=== PATIENT | male | born 1960 | race Caucasian/White ===

== ENCOUNTER 2021-05-12 09:07 | Day surgery (SDC) | payer BC ==
[~2021-05-12 09:07] MED LIST: Acetaminophen 325 MG Tab PO SCH; Midazolam 1 MG/ML 2 ML SDV ONE; Pregabalin 25 MG Cap PO SCH; Propofol 200 MG/20 ML SDV ONE; ceFAZolin 1 GM Vial ONE; oxyCODONE ER 10 MG TAB.ER PO SCH
--- NOTE | 2021-05-12 09:30 | PCM.PREANE ---
Preanesthetic Assessment - Procedure Proposed Procedure: Left total knee arthroplasty - Anesthesia/Transfusion/Family Hx Anesthesia History: Prior Anesthesia Without Reaction Family History of Anesthesia Reaction: No Transfusion History: No Prior Transfusion(s) Intubation History: Unknown - Review of Systems General: No Symptoms Pulmonary: No Symptoms Cardiovascular: No Symptoms Gastrointestinal: No Symptoms Neurological: Numbness (Left ring and pinky finger), Tingling Other: Reports: None - Physical Assessment NPO Status Date: 05/11/21 NPO Status Time: 20:00 Vital Signs: 137/84 HR 74 RR 14 95% RA 98.5 Height: 1.75 m Weight: 95.7 kg ASA Class: 2 Mental Status: Alert & Oriented x3 Airway Class: Mallampati = 1 Dentition: Reports: Normal Dentition, Titanic(s), Caries Thyro-Mental Finger Breadths: 3 Mouth Opening Finger Breadths: 3 Lungs: Clear to Auscultation, Normal Respiratory Effort, Other (Patient vaped this morning) Cardiovascular: Regular Rate, Regular Rhythm, No Murmurs - Lab Values: Labs reviewed and okay to proceed - Imaging/EKG Impressions: EKG 04/15/21 NSR HR 63 Chest x-ray04/15/21: no acute findings - Allergies Allergies/Adverse Reactions: Allergies Allergy/AdvReac Type Severity Reaction Status Date / Time acetaminophen [From Vicodin] Allergy Cannot Verified 05/09/21 10:39 Remember hydrocodone bitartrate Allergy Cannot Verified 05/09/21 10:39 [From Vicodin] Remember niacin Allergy Rash Verified 05/09/21 10:39 - Blood Blood Available: No Product(s) Available: None - Anesthesia Plan Pre-Op Medication Ordered: Other (See Dr. Gaspar's orders) - Acknowledgements Anesthesia Type Planned: Spinal Pt an Appropriate Candidate for the Planned Anesthesia: Yes Alternatives and Risks of Anesthesia Discussed w Pt/Guardian: Yes Pt/Guardian Understands and Agrees with Anesthesia Plan: Yes PreAnesthesia Questionnaire HEENT History: Reports: Hard of Hearing, Sinusitis, Other (See Below) Other HEENT History: otomycosis, hearing loss, tinnitus Cardiovascular History: Reports: High Cholesterol, Hypertension Other Cardiovascular History: Can perform greater than 4 METS without chest pain and SOB Respiratory History: Reports: COPD Gastrointestinal History: Reports: Chronic Constipation Genitourinary History: Reports: Renal Calculus 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 Musculoskeletal History: Reports: Osteoarthritis Neurological History: Reports: Other (See Below) Other Neuro History: tremor, numbness/tingling to legt ring and pinky finger (chronic for patient), occasional headaches Psychiatric History: Reports: Anxiety, Depression, Other (See Below) Other Psychiatric History: insomnia Endocrine/Metabolic History: Reports: Vitamin D Deficiency Hematologic History: Reports: None Immunologic History: Reports: None Oncologic (Cancer) History: Reports: None Dermatologic History: Reports: Other (See Below) Other Dermatologic History: pruitis - Past Surgical History Head Surgeries/Procedures: Reports: None HEENT Surgical History: Reports: Tonsillectomy Cardiovascular Surgical History: Reports: Varicose Respiratory Surgical History: Reports: None GI Surgical History: Reports: Colonoscopy Female Surgical History: Reports: None Male Surgical History: Reports: None, Vasectomy Endocrine Surgical History: Reports: None Neurological Surgical History: Reports: Lumbar Spine (x2) Musculoskeletal Surgical History: Reports: Other (See Below) Other Musculoskeletal Surgeries/Procedures:: R shoulder torn tendon, low back and R ankle surgery, Bilateral shoulder repair, leg surgery Oncologic Surgical History: Reports: None Dermatological Surgical History: Reports: None - SUBSTANCE USE Tobacco Use Status *Q: Former Tobacco User Tobacco Use Within Last Twelve Months: Vaping Second Hand Smoke Exposure: No Days Per Week of Alcohol Use: 0 Number of Drinks Per Day: 0 Total Drinks Per Week: 0 Recreational Drug Use History: No - HOME MEDS Home Medications: Home Meds Lisinopril/Hydrochlorothiazide [Lisinopril-Hctz 20-12.5 mg Tab] 1 tab PO DAILY 07/14/14 [History] atorvaSTATin [Lipitor] 40 mg PO DAILY 07/14/14 [History] Multivit-Min/FA/Lycopen/Lutein [Centrum Silver Ultra Men's] 1 tab PO DAILY 01/24/16 [History] Ubidecarenone [Coq10] 50 mg PO DAILY 01/24/16 [History] Aspirin 81 mg PO DAILY 05/09/21 [History] Celecoxib 200 mg PO DAILY 05/09/21 [History] Cholecalciferol (Vitamin D3) [Vitamin D3] 5,000 unit PO DAILY 05/09/21 [History] Vitamin B Complex [B Complex] 1 tab PO DAILY 05/09/21 [History] Apixaban [Eliquis] 2.5 mg PO BID #84 tablet 05/11/21 [Rx] Cyclobenzaprine [Flexeril] 10 mg PO BID PRN #20 tab 05/11/21 [Rx] oxyCODONE 5 - 10 mg PO Q4H PRN #40 tab 05/11/21 [Rx] - CURRENT (IN HOUSE) MEDS Current Meds: Current Medications Acetaminophen (Acetaminophen 325 Mg Tab) 975 mg PO ONETIME RAJAT Stop: 05/12/21 16:00 Last Admin: 05/12/21 09:19 Dose: 975 mg Documented by: Morphine Sulfate 8 mg/Epinephrine HCl 0.3 mg/Cefuroxime Sodium 750 mg/Ketorolac Tromethamine 30 mg/Sodium Chloride 7.9 ml 0 mg .XX ASDIRECTED PRN PRN Reason: Pain Stop: 05/12/21 18:00 Oxycodone HCl (Oxycodone Er 10 Mg Tab.Er) 10 mg PO ONETIME RAJAT Stop: 05/12/21 16:00 Last Admin: 05/12/21 09:19 Dose: 10 mg Documented by: Pregabalin (Pregabalin 25 Mg Cap) 50 mg PO ONETIME RAJAT Stop: 05/12/21 16:00 Last Admin: 05/12/21 09:20 Dose: 50 mg Documented by: Discontinued Medications Cefazolin Sodium (Cefazolin 1 Gm Vial) Confirm Administered Dose 2 gm .ROUTE .STK-MED ONE Stop: 05/12/21 08:26 Midazolam HCl (Midazolam 1 Mg/Ml 2 Ml Sdv) Confirm Administered Dose 2 mg .ROUTE .STK-MED ONE Stop: 05/12/21 08:20 Propofol (Propofol 200 Mg/20 Ml Sdv) Confirm Administered Dose 400 mg .ROUTE .STK-MED ONE Stop: 05/12/21 08:20 Propofol (Propofol 200 Mg/20 Ml Sdv) Confirm Administered Dose 200 mg .ROUTE .STK-MED ONE Stop: 05/12/21 08:32
[2021-05-12] MEDS ORDERED: Albuterol 0.083% 2.5 MG/3 ML Neb Soln ONE (09:38)
[2021-05-12] MEDS ORDERED: Albuterol 0.083% 2.5 MG/3 ML Neb Soln NEB ONE (09:40)
[2021-05-12] MEDS ORDERED: Sodium Chloride 0.9% 10 ML Syringe FLUSH PRN (09:42)
[2021-05-12] MEDS ORDERED: Lidocaine 1%/Sod Bicarbonate in NS 8.4% 1 ML Syringe IDERM PRN (09:42)
[2021-05-12] MEDS ORDERED: Lactated Ringers 1,000 ML IV SCH (09:45)
[2021-05-12] MEDS ORDERED: EPINEPHrine 1 MG/ML SDV ONE (10:07)
[2021-05-12] MEDS ORDERED: Ropivacaine 0.5% 5 MG/ML 30 ML SDV ONE (10:07)
[2021-05-12] MEDS ORDERED: fentaNYL 100 MCG/2 ML SDV ONE (11:20)
[2021-05-12] MEDS ORDERED: ePHEDrine 50 MG/ML SDV ONE (11:25)
[2021-05-12] MEDS ORDERED: Propofol 200 MG/20 ML SDV ONE ×3 (11:39→12:38)
[2021-05-12] MEDS ORDERED: Lactated Ringers 1,000 ML ONE (11:55)
[2021-05-12] MEDS: Morphine 8 MG, EPINEPHrine 0.3 MG, Cefuroxime 750 MG, Ketorolac 30 MG, Sodium Chloride ... PRN ×10 (11:57→12:27)
[2021-05-12] MEDS: Vancomycin 1 GM SDV ONE ×2 (11:58→12:33)
[2021-05-12] MEDS ORDERED: Ondansetron 4 MG/2 ML SDV IVPUSH PRN (13:28)
[2021-05-12] MEDS ORDERED: fentaNYL 100 MCG/2 ML SDV IVPUSH PRN (13:28)
[2021-05-12] MEDS ORDERED: HYDROmorphone 0.5 MG/0.5 ML Syringe IVPUSH PRN (13:28)
--- NOTE | 2021-05-12 13:31 | PCM.POSTAN ---
POST ANESTHESIA ASSESSMENT - MENTAL STATUS Mental Status: Alert, Oriented - VITAL SIGNS Vital Signs: Last Vital Signs Temp 98.3 F 05/12/21 13:25 Pulse 73 05/12/21 13:25 Resp 16 05/12/21 13:25 BP 108/67 05/12/21 13:25 Pulse Ox 95 05/12/21 13:25 - RESPIRATORY Respiratory Status: Respiratory Rate WNL, Airway Patent, O2 Saturation Stable - CARDIOVASCULAR CV Status: Pulse Rate WNL, Blood Pressure Stable - GASTROINTESTINAL GI Status: No Symptoms - PAIN Pain Score: 0 - POST OP HYDRATION Hydration Status: Adequate & Stable
--- NOTE | 2021-05-12 13:33 | PCM.SN.2 ---
- Free Text/Narrative Note: Left selective femoral nerve block at the adductor canal for post-procedure pain control under US guidance requested by Dr. Gaspar. Time Out: 1305 Start: 1308 End: 1312 Chart reviewed. Consent signed. Questions answered. Appropriate monitors applied. Time out performed. Left mid-shaft femur identified with ultrasound, scanning medially of femur, the femoral artery in the adductor canal visualized, and the femoral nerve located laterally to the artery. The skin was prepped lateral to the ultrasound probe with chlorahexadine times two. The 21ga 4 insulated block needle was inserted under direct ultrasound guidance into the adductor canal. 20mL of 0.5% ropivacaine with 1:200,000 epinephrine was injected circumferentially around the nerve with intermittent negative aspiration noted. Patient tolerated the procedure well. Sterile technique noted along with sterile gloves, mask, and sterile probe cover. See picture on progress note and vital signs on nurses notes. Block completed in PACU. Isabelle Salguero, BILINGUAL ACCOUNT MANAGER
--- NOTE | 2021-05-12 14:01 | CR ---
Left knee: AP and crosstable lateral views of the left knee were obtained. Comparison: Prior left knee CT knee exam of 04/30/21. Knee prosthesis is seen. Components are aligned. Underlying bony structures show no acute abnormality. Soft tissue air is seen. Impression: 1. Satisfactory postop radiographic appearance of left knee prosthesis. Diagnostic code #2
[2021-05-12 15:04] VITALS: BP 124/84; PULSE 78
--- NOTE | 2021-05-12 15:15 | PCM48HPAN ---
Post Anesthesia Note - EVALUATION WITHIN 48HRS OF ANESTHETIC Vital Signs in Normal Range: Yes Patient Participated in Evaluation: Yes Respiratory Function Stable: Yes Airway Patent: Yes Cardiovascular Function Stable: Yes Hydration Status Stable: Yes Pain Control Satisfactory: Yes Nausea and Vomiting Control Satisfactory: Yes Mental Status Recovered: Yes Vital Signs: Last Vital Signs Temp 36.6 C 05/12/21 15:00 Pulse 78 05/12/21 15:00 Resp 16 05/12/21 15:00 BP 124/84 05/12/21 15:00 Pulse Ox 96 05/12/21 15:00
--- NOTE | 2021-05-20 08:03 | PCM.OPNOTE ---
- General Post-Op/Procedure Note Date of Surgery/Procedure: 05/12/21 Operative Procedure(s): left total knee arthroplasty with isabelle tom robotics Pre Op Diagnosis: left knee osteoarthrosis Post-Op Diagnosis: Same Anesthesia Technique: Local, MAC, Spinal Primary Surgeon: Sav Gaspar Anesthesia Provider: Isabelle Salguero Marketing Traffic Coordinator: Morelia Thomas Marketing Traffic Coordinator: Jeanette Gaurdado EBL in mLs: 300 Complications: None Condition: Good Free Text/Narrative:: 01/29 9mm 35x10
--- NOTE | 2021-05-26 07:56 | OR ---
DATE OF OPERATION: 05/12/2021 SURGEON: Sav Gaspar MD OPERATION PERFORMED: Left total knee arthroplasty with [employer] Bernard[employer] robotics. PREOPERATIVE DIAGNOSIS: Left knee osteoarthrosis. POSTOPERATIVE DIAGNOSIS: Left knee osteoarthrosis. ANESTHESIA: Local MAC with spinal. ANESTHESIA PROVIDER: Isabelle Salguero CRNA. ASSISTANTS: Morelia Thomas PA-C and Jeanette Guardado LPN. ESTIMATED BLOOD LOSS: 300 mL. COMPLICATIONS: None. CONDITION: Stable. IMPLANT: 1. Marcela size 5 press-fit CR femur. 2. Marcela size 5 press-fit tibial baseplate. 3. Marcela size 5, 9 mm CS polyethylene insert. 4. Marcela size 35 x 10 mm press-fit asymmetric patella. DESCRIPTION OF PROCEDURE: The patient was identified in the preoperative holding area. Proper site was marked and identified by the surgeon. The patient was taken back to the operating theater where after adequate anesthesia, the patient's left lower extremity had a nonsterile tourniquet applied and it was then sterilely prepped and draped in the usual sterile fashion. OR time-out was performed. The patient received 2 g IV Ancef. Left lower extremity than had the boot campbell applied. It was then exsanguinated. Tourniquet was insufflated to 250 mmHg. Standard anterior incision was made. Anterior medial parapatellar arthrotomy was created. Deep fibers of the MCL were raised and anterior fat pad was resected. Attention was turned to the patella, patella measured a 25, resected to a 15 for a 35 x 10 mm patella. Drill holes were then drilled and found to be adequate. Attention was turned to the femur. Two 4.0 Schanz pins were placed intra-incisionally on the femur for the Marcela Bernardino robotic array, 2 more were placed in the tibia, 3 fingerbreadths below the tibial tubercle. Check points were then placed on the femur and the tibia. Hip center rotation was obtained. Medial and lateral malleoli were marked as well as the checkpoints on the femur and the tibia. 40 points were then obtained off the femur and the tibia for the Marcela Bernardino robotic plan. The patient's knee was brought into full extension, varus valgus stresses were applied at 90 degrees of flexion. Renton Bernardino robotic plan for 19 mm gaps was then undertaken for this patient. A straight saw blade was brought in and tibial cut was completed, anterior femoral cut, anterior chamfer cut, and posterior femoral cut. Saw blade was then switched, distal femoral cut and posterior chamfer cuts were then completed. All bony fragments were removed. The medial and lateral meniscus were resected. Posterior osteophytes were removed. A trial of 5 baseplate was placed on the tibia, trial 5 femur was placed. A 9 mm trial spacer was placed. The patient had full extension and flexion. No varus-valgus instability was noted. Femoral drill holes were drilled. Tibia was stamped and drilled in proper rotation. Size 5 baseplate was then impacted into place, size 5 CR femur was impacted into place, and 9 mm CS polyethylene insert was impacted into place. The patient's knee was brought into full extension and a 35 x 10 mm press-fit patella was press-fit into place. Tourniquet was deflated. Bleeders were cauterized. 1 L pulse lavage irrigation with Ancef was irrigated through the knee along with 400 mL of Irrisept irrigation. Periarticular injection was completed. Topical tranexamic acid and vancomycin powder were applied. A #2 barbed suture was used for closure of the medial parapatellar arthrotomy, 2-0 Vicryl and Stratafix was used for subcutaneous closure, and Prineo was used for skin closure. The patient had a sterile soft dressing applied and sent to the PACU in stable condition. MMODAL /[id number]
== END 2021-05-12 16:22 | disposition home or self-care (01) ==
LOC: JD.SDS 09:07 → JD.MS 09:08 → JD.SDS 16:22
PROVIDERS: ATTEND Orthopaedic Surgery
DX: M17.12 Unilateral primary osteoarthritis, left knee (principal); I10 Essential (primary) hypertension; E78.2 Mixed hyperlipidemia; F33.42 Major depressive disorder, recurrent, in full remission; G89.18 Other acute postprocedural pain; E55.9 Vitamin D deficiency, unspecified; Z79.899 Other long term (current) drug therapy; Z79.82 Long term (current) use of aspirin; Z88.8 Allergy status to other drugs, medicaments and biological substances; Z98.890 Other specified postprocedural states; Z87.891 Personal history of nicotine dependence
CPT/HCPCS: 27447; 73560; 94640; 97110; 97116; 97161; A9270; C1713; C1776; J0171; J0690; J0697; J1885; J2250; J2270; J2370; J2704; J2795; J3010; J3370; J7120; 01402; 64450; 76942

== ENCOUNTER 2023-09-19 10:58 | Emergency (ER) | payer BC ==
[2023-09-19 13:30] VITALS: BP 142/94
[2023-09-19] MEDS ORDERED: Apixaban 5 MG Tab PO ONE (13:30)
[2023-09-19 13:50] VITALS: PULSE 80
== END 2023-09-19 13:43 | disposition home or self-care (01) ==
LOC: JD.ED 10:58
DX: I82.401 Acute embolism and thrombosis of unspecified deep veins of right lower extremity (principal); I10 Essential (primary) hypertension; E78.00 Pure hypercholesterolemia, unspecified; J44.9 Chronic obstructive pulmonary disease, unspecified; M19.90 Unspecified osteoarthritis, unspecified site; F17.210 Nicotine dependence, cigarettes, uncomplicated; Z79.01 Long term (current) use of anticoagulants; Z79.82 Long term (current) use of aspirin; Z88.5 Allergy status to narcotic agent; Z88.8 Allergy status to other drugs, medicaments and biological substances
CPT/HCPCS: 93971; 99283; A9270

== ENCOUNTER 2024-02-23 12:14 | Emergency (ER) | payer BC ==
[2024-02-23] MEDS: Iopamidol 755 Mg/ML 100 ML Bottle IVPUSH ONE (12:34)
[2024-02-23] MEDS: Sodium Chloride 0.9% 10 ML Syringe FLUSH PRN (12:34)
[2024-02-23] MEDS: Sodium Chloride 0.9% 100 ML IV SCH (12:34)
[2024-02-23 13:00] LABS: BASOPHILS ABSOLUTE AUTO 0.1 K/mm3 (0.0-0.2); BASOPHILS PERCENT AUTO 1.1 % (0.0-1.0); EOSINOPHILS ABSOLUTE AUTO 0.1 K/mm3 (0.0-0.4); HEMATOCRIT 43.6 % (42.0-52.0); HEMOGLOBIN 14.8 gm/dl (14.0-18.0); IMMATURE GRAN ABSOLUTE AUTO 0.01 K/mm3 (0.00-0.05); IMMATURE GRAN PERCENT AUTO 0.2 % (0.0-0.4); LYMPHOCYTES ABSOLUTE AUTO 1.4 K/mm3 (1.0-4.8); LYMPHOCYTES PERCENT AUTO 26.5 % (24.0-44.0); MEAN CORPUSCULAR HEMOGLOBIN 28.2 pg (28.0-32.0); MEAN CORPUSCULAR HGB CONC 33.9 g/dl (32.0-36.0); MEAN CORPUSCULAR VOLUME 83.2 fl (83.0-99.0); MEAN PLATELET VOLUME 10.1 fl (9.4-12.4); MONOCYTES ABSOLUTE AUTO 0.6 K/mm3 (0.0-0.8); MONOCYTES PERCENT AUTO 10.3 % (0.0-8.0); NEUTROPHILS ABSOLUTE AUTO 3.3 K/mm3 (1.8-7.7); NEUTROPHILS PERCENT AUTO 59.9 % (41.0-71.0); PLATELET COUNT,PLT 174 K/mm3 (150-400); RED BLOOD CELL COUNT 5.24 M/mm3 (4.52-5.90); WHITE BLOOD CELL COUNT,WBC 5.43 K/mm3 (3.9-11.3)
[2024-02-23 13:25] LABS: INR 0.98; PROTHROMBIN TIME 10.5 SECONDS (9.7-12.0)
[2024-02-23 13:26] LABS: PTT,PARTIAL THROMBOPLSTIN TIME 25.3 SECONDS (21.7-31.4)
[2024-02-23 13:30] LABS: A/G RATIO 1.4 (1-2); ALBUMIN 3.7 g/dl (3.4-5.0); ANION GAP 11.9 (5-15); BILIRUBIN TOTAL 0.6 mg/dL (0.2-1.0); CALCIUM 8.9 mg/dL (8.5-10.1); EST CRCL DRUG DOSING (CG) 81.91 mL/min; POTASSIUM,K 3.9 mEq/L (3.5-5.1); PROTEIN TOTAL,TP 6.4 g/dl (6.4-8.2)
[2024-02-23 18:32] VITALS: BP 110/79; PULSE 70
== END 2024-02-23 15:35 | disposition home or self-care (01) ==
LOC: JD.ED 12:14
DX: R41.3 Other amnesia (principal); I10 Essential (primary) hypertension; E78.00 Pure hypercholesterolemia, unspecified; Z79.82 Long term (current) use of aspirin; Z79.899 Other long term (current) drug therapy; Z79.01 Long term (current) use of anticoagulants; Z88.8 Allergy status to other drugs, medicaments and biological substances
CPT/HCPCS: 36415; 70450; 70496; 70498; 80053; 84484; 85025; 85610; 85730; 93005; 99285; J3490; Q9967; 93010; 99284